=== PATIENT | male | born 1955 | race Two or more races ===

== ENCOUNTER 2020-06-10 03:28 | Emergency (ER) | payer MEDICARE, MEDICAID ==
[~2020-06-10] VITALS: Ht 182.9 cm; Wt 86.2 kg
[2020-06-10 04:08] LABS: Urine Bacteria FEW /hpf (None Seen); Urine Blood Negative /uL (Negative); Urine Mucus FEW (None Seen); Urine Specific Gravity 1.023 (1.001-1.035); Urine WBC 7 /hpf (0 - 3)
[2020-06-10 04:18] LABS: Basophils # (auto) 0 10 ^3/uL (0-0.2); Basophils % (auto) 0.3 % (0.0-2.0); Eosinophils # (auto) 0.3 10 ^3/uL (0-0.8); Eosinophils % (auto) 5.2 % (0.0-7.0); Hemoglobin 15.3 g/dL (13.5-17.5); Lymphocytes # (auto) 1.7 10 ^3/uL (0.4-5.4); Lymphocytes % (auto) 30.2 % (10.0-50.0); Mean Corpuscular Hemoglobin 29.9 pg (28.0-32.0); Mean Corpuscular Hgb Conc. 34.8 g/dL (32.0-36.0); Mean Corpuscular Volume 85.7 fL (80.0-100.0); Monocytes # (auto) 0.4 10 ^3/uL (0-1.3); Monocytes % (auto) 7.9 % (0.0-12.0); Neutrophils # (auto) 3.1 10 ^3/uL (1.6-8.6); Neutrophils % (auto) 56.4 % (37.0-80.0); Nucleated Red Blood Cells % 0.2 %; Platelet Count (auto) 168 10^3/uL (140-450); Red Blood Cells 5.13 10^6/uL (4.5-5.90); Red Cell Distribution Width 14.3 % (11.8-14.3); White Blood Cell 5.5 10^3/uL (4.4-10.8)
[2020-06-10 04:30] VITALS: BP 143/92
[2020-06-10 04:40] LABS: Albumin 3.9 g/dL (3.4-5.0); Calcium 8.4 mg/dL (8.5-10.1); Magnesium 2.5 mg/dL (1.6-2.6)
[2020-06-10 04:45] LABS: BUN/Creatinine Ratio 18.4; Bilirubin, Total 0.7 mg/dL (0.2-1.0); Total Protein 7.6 g/dL (6.4-8.2)
[2020-06-10] MEDS ORDERED: ACETAMINOPHEN/CODEINE#3 (300/30mg) TAB PO ONE (05:45)
== END 2020-06-10 06:15 | disposition home or self-care (01) ==
LOC: ER 03:29
DX: R33.9 Retention of urine, unspecified (principal)
CPT/HCPCS: 36415; 80053; 81001; 83735; 85025

== ENCOUNTER 2020-11-24 07:41 | Emergency (ER) | payer MEDICARE, MEDICAID ==
[~2020-11-24] VITALS: Ht 182.9 cm; Wt 83.9 kg
[2020-11-24 09:03] VITALS: BP 143/79
[2020-11-24 09:06] LABS: Basophils # (auto) 0 10 ^3/uL (0-0.2); Basophils % (auto) 0.1 % (0.0-2.0); Eosinophils # (auto) 0.2 10 ^3/uL (0-0.8); Eosinophils % (auto) 5.1 % (0.0-7.0); Hemoglobin 14.6 g/dL (13.5-17.5); Lymphocytes # (auto) 1.2 10 ^3/uL (0.4-5.4); Mean Corpuscular Hemoglobin 29.7 pg (28.0-32.0); Mean Corpuscular Hgb Conc. 34.8 g/dL (32.0-36.0); Mean Corpuscular Volume 85.3 fL (80.0-100.0); Monocytes # (auto) 0.4 10 ^3/uL (0-1.3); Monocytes % (auto) 8.8 % (0.0-12.0); Nucleated Red Blood Cells % 0.2 %; Red Blood Cells 4.93 10^6/uL (4.5-5.90); Red Cell Distribution Width 14.2 % (11.8-14.3); White Blood Cell 4.8 10^3/uL (4.4-10.8)
[2020-11-24 09:12] LABS: Urine Bacteria NONE SEEN /hpf (None Seen); Urine Blood Negative /uL (Negative); Urine Mucus FEW (None Seen); Urine Specific Gravity 1.014 (1.001-1.035); Urine WBC 3 /hpf (0 - 3)
[2020-11-24 09:23] LABS: Albumin 3.5 g/dL (3.4-5.0); BUN/Creatinine Ratio 18.1; Calcium 8.2 mg/dL (8.5-10.1); Potassium 3.1 mmol/L (3.5-5.1)
[2020-11-24 09:25] LABS: Bilirubin, Total 0.5 mg/dL (0.2-1.0); Total Protein 7.3 g/dL (6.4-8.2)
[2020-11-24] MEDS ORDERED: POTASSIUM EFFERVESENT TAB 25 MEQ PO ONE (10:30)
== END 2020-11-24 11:02 | disposition home or self-care (01) ==
LOC: ER 07:41
DX: R33.9 Retention of urine, unspecified (principal); E87.6 Hypokalemia; I10 Essential (primary) hypertension; E78.5 Hyperlipidemia, unspecified
CPT/HCPCS: 36415; 51702; 80053; 81001; 85025

== ENCOUNTER 2020-12-05 13:59 | Emergency (ER) | payer MEDICARE, MEDICAID ==
[~2020-12-05] VITALS: Ht 182.9 cm; Wt 83.9 kg
[2020-12-05 14:52] VITALS: BP 11/79
[2020-12-05 15:42] LABS: Urine Bacteria FEW /hpf (None Seen); Urine Blood 3+ /uL (Negative); Urine Specific Gravity 1.023 (1.001-1.035); Urine WBC 72 /hpf (0 - 3); Urine WBC Clumps PRESENT /hpf (None Seen)
== END 2020-12-05 16:05 | disposition home or self-care (01) ==
LOC: ER 13:59
DX: N39.0 Urinary tract infection, site not specified (principal); R33.9 Retention of urine, unspecified; I10 Essential (primary) hypertension
CPT/HCPCS: 51702; 81001

== ENCOUNTER 2020-12-06 21:52 | Emergency (ER) | payer MEDICARE, MEDICAID ==
[~2020-12-06] VITALS: Ht 182.9 cm; Wt 83.9 kg
[2020-12-06 22:38] LABS: Basophils # (auto) 0 10 ^3/uL (0-0.2); Basophils % (auto) 0.8 % (0.0-2.0); Eosinophils # (auto) 0.3 10 ^3/uL (0-0.8); Eosinophils % (auto) 5.6 % (0.0-7.0); Hematocrit 42.9 % (41.0-53.0); Hemoglobin 14.9 g/dL (13.5-17.5); Lymphocytes # (auto) 1.4 10 ^3/uL (0.4-5.4); Mean Corpuscular Hemoglobin 29.8 pg (28.0-32.0); Mean Corpuscular Hgb Conc. 34.6 g/dL (32.0-36.0); Mean Corpuscular Volume 85.9 fL (80.0-100.0); Monocytes # (auto) 0.4 10 ^3/uL (0-1.3); Monocytes % (auto) 6.4 % (0.0-12.0); Neutrophils # (auto) 3.4 10 ^3/uL (1.6-8.6); Neutrophils % (auto) 62.2 % (37.0-80.0); Red Cell Distribution Width 13.9 % (11.8-14.3); White Blood Cell 5.5 10^3/uL (4.4-10.8)
[2020-12-06 22:59] LABS: Albumin 3.9 g/dL (3.4-5.0); Potassium 3.3 mmol/L (3.5-5.1)
[2020-12-06 23:02] LABS: INR 0.99 (0.9-1.15)
[2020-12-06 23:04] LABS: BUN/Creatinine Ratio 17.8; Bilirubin, Total 0.3 mg/dL (0.2-1.0); Total Protein 7.9 g/dL (6.4-8.2)
[2020-12-06 23:12] LABS: Urine Blood 3+ /uL (Negative); Urine Specific Gravity 1.024 (1.001-1.035)
[2020-12-07 00:55] LABS: Urine Bacteria MOD /hpf (None Seen); Urine WBC 1412 /hpf (0 - 3); Urine WBC Clumps PRESENT /hpf (None Seen)
[2020-12-07] MEDS ORDERED: SODIUM CHLORIDE 0.9% 1,000 ML IV ONE (02:00)
[2020-12-07 03:00] VITALS: BP 150/89
== END 2020-12-07 04:17 | disposition home or self-care (01) ==
LOC: ER 21:53
DX: R33.9 Retention of urine, unspecified (principal)
CPT/HCPCS: 36415; 80053; 81001; 85025; 85610; 96360; 99283; J7030

== ENCOUNTER 2021-09-06 17:37 | Emergency (ER) | payer MEDICARE, MEDICAID ==
[~2021-09-06] VITALS: Ht 182.9 cm; Wt 83.9 kg
[2021-09-06 18:18] VITALS: BP 162/94
[2021-09-06 18:32] LABS: Urine Bacteria NONE SEEN /hpf (None Seen); Urine Blood Negative /uL (Negative); Urine Specific Gravity 1.011 (1.001-1.035); Urine WBC 2 /hpf (0 - 3)
== END 2021-09-06 19:43 | disposition home or self-care (01) ==
LOC: ER 17:37
DX: R33.9 Retention of urine, unspecified (principal); I10 Essential (primary) hypertension
CPT/HCPCS: 51702; 81001; 87086

== ENCOUNTER 2023-02-12 12:49 | Emergency (ER) | payer OTHER, MEDICAID ==
[~2023-02-12] VITALS: Ht 182.9 cm; Wt 86.9 kg
[2023-02-12 15:55] LABS: Urine Bacteria NONE SEEN /hpf (None Seen); Urine Blood Negative /uL (Negative); Urine WBC 1 /hpf (0 - 3)
[2023-02-12 16:04] VITALS: BP 174/103
[2023-02-12] MEDS ORDERED: cloNIDine HCL 0.1 MG TAB PO ONE (16:15)
== END 2023-02-12 17:40 | disposition home or self-care (01) ==
LOC: ER 12:49
DX: R33.9 Retention of urine, unspecified (principal); I10 Essential (primary) hypertension
CPT/HCPCS: 51702; 81001

== ENCOUNTER 2023-04-13 22:48 | Emergency (ER) | payer OTHER, MEDICAID ==
[~2023-04-13] VITALS: Ht 182.9 cm; Wt 84.6 kg
[2023-04-14 01:15] VITALS: BP 153/97; PULSE 80; RESP 16; TEMP 98.2; O2SAT 96
[2023-04-14] MEDS ORDERED: DexAMETHasone SOD PHOS 10MG/1ML VIAL INJ IM ONE (04:45)
[2023-04-14] MEDS ORDERED: HYDROcodone-ACET 5/325MG TAB PO ONE (04:45)
[2023-04-14] MEDS ORDERED: COLC1CAP PO (05:06)
== END 2023-04-14 06:07 | disposition home or self-care (01) ==
LOC: ER 22:48
DX: S93.492A Sprain of other ligament of left ankle, initial encounter (principal); S93.692A Other sprain of left foot, initial encounter; S83.8X2A Sprain of other specified parts of left knee, initial encounter; M10.9 Gout, unspecified; I10 Essential (primary) hypertension; X50.1XXA Overexertion from prolonged static or awkward postures, initial encounter; Y93.01 Activity, walking, marching and hiking; Y92.488 Other paved roadways as the place of occurrence of the external cause; Y99.8 Other external cause status
CPT/HCPCS: 29515; 36415; 73590; 73630; 84550; 96372; 99284; J1100

== ENCOUNTER 2024-01-19 05:45 | Inpatient (IN) | payer OTHER, MEDICAID ==
[~2024-01-19] VITALS: Ht 182.9 cm; Wt 84.0 kg
[~2024-01-19 05:45] MED LIST: COLC1CAP PO
[2024-01-19 07:21] VITALS: PULSE 111; RESP 15; O2SAT 95
[2024-01-19] MEDS: ACETAMINOPHEN 500 MG TAB PO ONE (07:54)
[2024-01-19] MEDS: IBUPROFEN 600 MG TAB PO ONE (07:55)
[2024-01-19 09:05] LABS: COVID19 ANTIGEN SOFIA FIA NEGATIVE (NEGATIVE); Rapid Influenza A Negative (Negative); Rapid Influenza B Negative (Negative)
[2024-01-19 09:47] LABS: Basophils # (auto) 0 10 ^3/uL (0-0.2); Basophils % (auto) 0.3 % (0.0-2.0); Eosinophils # (auto) 0 10 ^3/uL (0-0.8); Eosinophils % (auto) 0.4 % (0.0-7.0); Hematocrit 46.6 % (41.0-53.0); Hemoglobin 15.4 g/dL (13.5-17.5); Lymphocytes # (auto) 0.8 10 ^3/uL (0.4-5.4); Lymphocytes % (auto) 11.2 % (10.0-50.0); Mean Corpuscular Hemoglobin 29.1 pg (28.0-32.0); Mean Corpuscular Volume 88.3 fL (80.0-100.0); Monocytes # (auto) 0.7 10 ^3/uL (0-1.3); Monocytes % (auto) 9.5 % (0.0-12.0); Neutrophils # (auto) 5.6 10 ^3/uL (1.6-8.6); Neutrophils % (auto) 78.6 % (37.0-80.0); Nucleated Red Blood Cells % 0.2 %; Red Blood Cells 5.28 10^6/uL (4.5-5.90); Red Cell Distribution Width 15.8 % (11.8-14.3); White Blood Cell 7.1 10^3/uL (4.4-10.8)
[2024-01-19 09:50] VITALS: PULSE 65; RESP 14; O2SAT 95
[2024-01-19] MEDS: SODIUM CHLORIDE 0.9% 500 ML IV ONE (09:50)
[2024-01-19 10:00] LABS: INR 1.1 (0.9-1.15); Prothrombin Time 11.6 sec (9.3-11.8)
[2024-01-19 10:02] LABS: Alanine Aminotransferase 62 U/L (7-40); Albumin 4.1 g/dL (3.2-4.8); Alkaline Phosphatase 74 U/L (46-116); Anion Gap 8 (5-15); Aspartate Aminotransferase 37 U/L (13-40); BUN/Creatinine Ratio 16.1 (10.0-20.0); Bilirubin, Total 0.9 mg/dL (0.2-1.0); Blood Urea Nitrogen 22 mg/dL (9-23); Calcium 8.9 mg/dL (8.5-10.1); Carbon Dioxide 24 mmol/L (20-30); Chloride 104 mmol/L (98-107); Glucose 109 mg/dL (74-106); Potassium 3.2 mmol/L (3.5-5.1); Sodium 136 mmol/L (136-145); Total Protein 7.2 g/dL (5.7-8.2)
[2024-01-19] MEDS: SODIUM CHLORIDE 0.9% 1,000 ML IV ONE ×2 (10:33→11:49)
[2024-01-19] MEDS: cefTRIAXone 1GM/50ML D5W 50 ML IV ONE (11:48)
[2024-01-19] MEDS: VANCOMYCIN 1GM/200ML 200 ML IV ONE (12:05)
[2024-01-19 12:11] LABS: Urine Bacteria None Seen /hpf (None Seen)
[2024-01-19 12:23] LABS: Urine Blood Negative /uL (Negative); Urine Clarity Turbid (Clear); Urine Color Yellow (Yellow); Urine Hyaline Cast MANY /lpf (0 - 2); Urine Mucus FEW (None Seen); Urine Protein, UAD 1+ (Negative); Urine Urobilinogen 2 mg/dL (Negative); Urine WBC 32 /hpf (0 - 3)
[2024-01-19] MEDS: AZITHROMYCIN 500MG/ 250ML 250 ML IV ONE (14:11)
[2024-01-19] MEDS: SODIUM CHLORIDE 0.9% 1,000 ML IV SCH (14:11)
[2024-01-20] VITALS (8 sets, daily range): BP systolic 99–134; BP diastolic 58–76; PULSE 68–88; RESP 17–20; TEMP 97.9–99.7; O2SAT 94–98
[2024-01-20 02:49] LABS: Rapid Strep A Screen-Throat Positive
[2024-01-20 06:30] LABS: Basophils # (auto) 0 10 ^3/uL (0-0.2); Basophils % (auto) 0.3 % (0.0-2.0); Eosinophils # (auto) 0 10 ^3/uL (0-0.8); Eosinophils % (auto) 0.5 % (0.0-7.0); Hematocrit 38.7 % (41.0-53.0); Hemoglobin 13.2 g/dL (13.5-17.5); Lymphocytes # (auto) 1.1 10 ^3/uL (0.4-5.4); Lymphocytes % (auto) 21.6 % (10.0-50.0); Mean Corpuscular Hemoglobin 29.4 pg (28.0-32.0); Mean Corpuscular Hgb Conc. 34.1 g/dL (32.0-36.0); Mean Corpuscular Volume 86.2 fL (80.0-100.0); Monocytes # (auto) 0.5 10 ^3/uL (0-1.3); Monocytes % (auto) 10.1 % (0.0-12.0); Neutrophils # (auto) 3.5 10 ^3/uL (1.6-8.6); Neutrophils % (auto) 67.5 % (37.0-80.0); Nucleated Red Blood Cells % 0.1 %; Red Blood Cells 4.49 10^6/uL (4.5-5.90); Red Cell Distribution Width 15.5 % (11.8-14.3); White Blood Cell 5.1 10^3/uL (4.4-10.8)
[2024-01-20 06:47] LABS: Chloride 107 mmol/L (98-107); Potassium 3.5 mmol/L (3.5-5.1); Sodium 137 mmol/L (136-145)
[2024-01-20 06:48] LABS: Anion Gap 7 (5-15); Carbon Dioxide 23 mmol/L (20-30)
[2024-01-20 06:49] LABS: Calcium 8.3 mg/dL (8.5-10.1)
[2024-01-20 06:53] LABS: Blood Urea Nitrogen 15 mg/dL (9-23); Glucose 93 mg/dL (74-106)
[2024-01-20] MEDS ORDERED: FINA5TAB4 PO (08:24)
[2024-01-20] MEDS ORDERED: HYDR25TA5 PO (08:24)
[2024-01-20] MEDS ORDERED: CHOL20007 PO (08:25)
[2024-01-20 09:55] LABS: Hepatitis B Surface Antigen Negative (Negative)
[2024-01-20] MEDS: ENOXAPARIN SOD 40 MG/0.4 ML SYRINGE SC SCH (10:00)
[2024-01-20] MEDS ORDERED: AZITHROMYCIN 500MG/ 250ML 250 ML IV SCH (10:00)
[2024-01-20 10:17] LABS: Hepatitis C Antibody Negative (Negative)
[2024-01-20] MEDS: cefTRIAXone 1GM/50ML D5W 50 ML IV SCH (10:35)
[2024-01-20] MEDS: PANTOPRAZOLE 40 MG/10 ML VIAL INJ IV ONE (11:30)
[2024-01-20] MEDS: metroNIDAZOLE 500MG/100ML 100 ML IV SCH (14:00)
[2024-01-20] MEDS: MELATONIN 5 MG TAB PO SCH (21:20)
[2024-01-21] VITALS (8 sets, daily range): BP systolic 111–153; BP diastolic 68–82; PULSE 56–81; RESP 16–18; TEMP 98–98.9; O2SAT 95–97
[2024-01-21] MEDS: ACETAMINOPHEN 325 MG TAB PO PRN (06:25)
[2024-01-21] MEDS: PANTOPRAZOLE 40 MG/10 ML VIAL INJ IV SCH (10:34)
[2024-01-22 01:00] VITALS: BP 121/67; PULSE 63; RESP 17; TEMP 98.3; O2SAT 95
[2024-01-22 05:00] VITALS: BP 131/66; PULSE 62; RESP 17; TEMP 98.8; O2SAT 96
[2024-01-22 07:13] LABS: Basophils # (auto) 0 10 ^3/uL (0-0.2); Basophils % (auto) 0.3 % (0.0-2.0); Eosinophils # (auto) 0.1 10 ^3/uL (0-0.8); Eosinophils % (auto) 2.8 % (0.0-7.0); Hematocrit 36.8 % (41.0-53.0); Hemoglobin 12.9 g/dL (13.5-17.5); Lymphocytes # (auto) 1.1 10 ^3/uL (0.4-5.4); Lymphocytes % (auto) 25.5 % (10.0-50.0); Mean Corpuscular Hgb Conc. 35.1 g/dL (32.0-36.0); Mean Corpuscular Volume 85.5 fL (80.0-100.0); Monocytes # (auto) 0.5 10 ^3/uL (0-1.3); Monocytes % (auto) 10.6 % (0.0-12.0); Neutrophils # (auto) 2.7 10 ^3/uL (1.6-8.6); Neutrophils % (auto) 60.8 % (37.0-80.0); Nucleated Red Blood Cells % 0.1 %; Red Cell Distribution Width 14.9 % (11.8-14.3); White Blood Cell 4.4 10^3/uL (4.4-10.8)
[2024-01-22 07:34] LABS: Chloride 107 mmol/L (98-107); Potassium 3.3 mmol/L (3.5-5.1); Sodium 138 mmol/L (136-145)
[2024-01-22 07:35] LABS: Anion Gap 6 (5-15); Calcium 8.4 mg/dL (8.5-10.1); Carbon Dioxide 25 mmol/L (20-30)
[2024-01-22 07:40] LABS: Glucose 91 mg/dL (74-106)
[2024-01-22 07:41] LABS: BUN/Creatinine Ratio 8.6 (10.0-20.0); Blood Urea Nitrogen 7 mg/dL (9-23)
[2024-01-22 09:00] VITALS: BP 140/78; PULSE 62; RESP 18; TEMP 97.3; O2SAT 96
[2024-01-22] MEDS ORDERED: PANT40TA2 PO (11:35)
[2024-01-22] MEDS: POTASSIUM CHL 20 Meq TABLET PO ONE (13:20)
== END 2024-01-22 17:16 | disposition home or self-care (01) | DRG 871 ==
LOC: ER 05:45 → TELE 13:35 → TELE-WESTW 01-20 08:03 → WEST WING 01-20 16:39
PROVIDERS: ADMIT Registered Nurse; ATTEND Internal Medicine
DX: A41.9 Sepsis, unspecified organism (principal); N17.0 Acute kidney failure with tubular necrosis; K52.9 Noninfective gastroenteritis and colitis, unspecified; E86.0 Dehydration; M10.9 Gout, unspecified; I10 Essential (primary) hypertension; M19.09 Primary osteoarthritis, other specified site; I95.9 Hypotension, unspecified; N40.0 Benign prostatic hyperplasia without lower urinary tract symptoms; Z20.822 Contact with and (suspected) exposure to COVID-19; E87.5 Hyperkalemia; Z79.899 Other long term (current) drug therapy
CPT/HCPCS: 36415; 71046; 74176; 80048; 80053; 81001; 83605; 83690; 83735; 83880; 84484; 85025; 85048; 85379; 85610; 86803; 87040; 87045; 87086; 87340; 87426; 87427; 87493; 87804; 87880; C9113; G0378; J3490

== ENCOUNTER 2024-12-14 09:08 | Inpatient (IN) | payer OTHER, MEDICAID ==
[~2024-12-14] VITALS: Ht 190.5 cm; Wt 83.0 kg
[~2024-12-14 09:08] MED LIST changes: +CHOL20007 PO; -COLC1CAP PO; +FINA5TAB4 PO; +HYDR25TA5 PO; +PANT40TA2 PO
--- NOTE | 2024-12-14 09:39 | ED.PDOC ---
General HPI Comments 69 year old male presents to the ED with a chief complaint of urine retention onset last night. Patient states has not urinated since las night. Has experienced similar symptoms 3 times in the past, goes to ED for Heaton catheter. Patient was drinking ETOH last night. PMHx HTN. Denies chest pain, nausea, vomiting, diarrhea, abdominal pain, hematuria, shortness of breath, fever, chills. No other symptoms or modifying factors present at this time. Chief Complaint: Urinary Time Seen by MD: 09:17 Primary Care Provider: unknown Reviewed notes: Medications, Allergies Allergies: Coded Allergies: NO KNOWN ALLERGIES (Unverified , 06/10/20) Home Meds Active Scripts Pantoprazole Sodium Sesquihydr (Protonix) 40 Mg Tab, 40 MG PO DAILY for 15 Days, #15 TAB Prov:ROSHNI VELASCO MD 01/22/24 Reported Medications Cholecalciferol (VITAMIN D3) 2,000 Unit Tab, 1 TAB PO DAILY, #30 TAB 5 Refills 01/20/24 Finasteride (Finasteride) 5 Mg Tab, 1 TAB PO DAILY, #30 TAB 11 Refills 01/20/24 Hctz (Hydrochlorothiazide) 25 Mg Tab, 1 TAB PO DAILY 01/20/24 Information Source: Patient Mode of Arrival: Ambulatory Severity: Moderate Timing: Hours Duration: Since onset Prehospital treatment: None Onset: Spontaneous Symptoms: Other (retention) History of: Urinary obstruction, Prostatitis Location: None Penile discharge: None Modifying factors: None associated signs and symptoms: Other Past Medical History PAST MEDICAL HISTORY: HTN Past Medical History (Other): prostate Surgical History: Denies all surgeries Family History Family History: Reviewed,noncontributory to illness Social History Smoker: Non-Smoker Alcohol: Occasionally Drugs: Denies Drug Use Lives In: Home Constitutional: denies: chills, diaphoresis, fatigue, fever, malaise, sweats, weakness, others EENTM: denies: blurred vision, double vision, ear bleeding, ear discharge, ear drainage, ear pain, ear ringing, eye pain, eye redness, hearing loss, mouth p ain, mouth swelling, nasal discharge, nose bleeding, nose congestion, nose pain, photophobia, tearing, throat pain, throat swelling, voice changes, others Respiratory: denies: cough, hemoptysis, orthopnea, SOB at rest, shortness of br eath, SOB with excertion, stridor, wheezing, others Cardiovascular: denies: chest pain, dizzy spells, diaphoresis, Dyspnea on exertion, edema, irregular heart beat, left arm pain, lightheadedness, palpitations, PND, syncope, others Gastrointestinal: denies: abdomen distended, abdominal pain, blood streaked bowels, constipated, diarrhea, dysphagia, difficulty swallowing, hematemesis, melena, nausea, poor appetite, poor fluid intake, rectal bleeding, rectal pain, vomiting, others Genitourinary: reports: others (retention); denies: burning, dysuria, flank pain, frequency, hematuria, incontinence, penile discharge, penile sore, pain, testicle pain, testicle swelling, urgency Neurological: denies: dizziness, fainting, headache, left sided numbness, left sided weakness, numbness, paresthesia, pre-existing deficit, right sided numbness, right sided weakness, seizure, speech problems, tingling, tremors, weakness, others Musculoskeletal: denies: back pain, gout, joint pain, joint swelling, muscle pain, muscle stiffness, neck pain, others Integumetry: denies: bruises, change in color, change in hair/nails, dryness, laceration, lesions, lumps, rash, wounds, others Allergic/Immunocompromised: denies: Difficulty Healing, Frequent Infections, Hives, Itching, others Hematologic/Lymphatic: denies: anemia, blood clots, easy bleeding, easy bruising, swollen glands, others Endocrine: denies: excessive hunger, excessive sweating, excessive thirst, excessive urination, flushing, intolerance to cold, intolerance to heat, unexplained weight gain, unexplained weight loss, others Psychiatric: denies: anxiety, bipolar disorder, depression, hopeless, panic disorder, schizophrenia, sleepless, suicidal, others All Other Systems: Reviewed and Negative Physical Exam General Appearance: Moderate Distress, Normal HEENT: Normal ENT Inspection, Pharynx Normal, TMs Normal Neck: Full Range of Motion, Non-Tender, Normal, Normal Inspection Respiratory: Chest Non-Tender, Lungs Clear, No Accessory Muscle Use, No Respiratory Distress, Normal Breath Sounds Cardiovascular: No Edema, No JVD, No Murmur, No Gallop, Normal Peripheral Pulses, Regular Rate/Rhythm Breast Exam: Deferred Gastrointestinal: No Organomegaly, No Pulsatile Mass, Normal Bowel Sounds, Soft, Suprapubic Genitalia: Deferred Pelvic: Deferred Rectal: Deferred Extremities: No calf tenderness, Normal capillary refill, Normal inspection, Normal range of motion, Non-tender, No pedal edema Musculoskeletal : Apperance: Normal 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 Was a procedure done?: No Differential Diagnosis Kidney stone (Female): Musculoskeletal pain, Urinary obstruction, Urolithiasis X-Ray, Labs, Meds, VS Vital Signs Date Time Temp Pulse Resp B/P (MAP) Pulse Ox O2 Delivery O2 Flow Rate FiO2 12/14/24 12:00 71 12/14/24 10:12 64 12/14/24 10:12 66 25 95 Room Air* 0 21 12/14/24 10:12 98.4 66 25 147/78 (101) 94 98.4 12/14/24 10:09 147/78 12/14/24 09:26 97.7 84 16 129/90 (103) 96 97.7 Lab Test 12/14/24 09:45 12/14/24 09:34 Range/Units Urine Color Colorless Yellow Urine Clarity Clear Clear Urine pH 5.0 5.0-9.0 Urine Specific [place] 1.007 1.001-1.035 Urine Protein Negative Negative Urine Ketones Negative Negative Urine Blood Negative Negative /uL Urine Nitrite Negative Negative Urine Bilirubin Negative Negative Urine Urobilinogen Normal Negative mg/dL Urine Leukocyte Esterase Negative Negative /uL Urine RBC 1 0 - 3 /hpf Urine Microscopic WBC < 1 0-3 /HPF Urine Squamous Epithelial Cells None seen <5 /hpf Urine Bacteria None seen None Seen /hpf Urine Glucose Normal Normal mg/dL White Blood Count 7.0 4.4-10.8 10^3/uL Red Blood Count 4.99 4.5-5.90 10^6/uL Hemoglobin 15.6 13.5-17.5 g/dL Hematocrit 45.0 41.0-53.0 % Mean Corpuscular Volume 90.3 80.0-100.0 fL Mean Corpuscular Hemoglobin 31.2 28.0-32.0 pg Mean Corpuscular Hemoglobin Concent 34.6 32.0-36.0 g/dL Red Cell Distribution Width 14.6 H 11.8-14.3 % Platelet Count 195 140-450 10^3/uL Mean Platelet Volume 8.6 6.9-10.8 fL Neutrophils (%) (Auto) 58.7 37.0-80.0 % Lymphocytes (%) (Auto) 32.9 10.0-50.0 % Monocytes (%) (Auto) 6.7 0.0-12.0 % Eosinophils (%) (Auto) 1.3 0.0-7.0 % Basophils (%) (Auto) 0.4 0.0-2.0 % Neutrophils # (Auto) 4.1 1.6-8.6 10 ^3/uL Lymphocytes # (Auto) 2.3 0.4-5.4 10 ^3/uL Monocytes # (Auto) 0.5 0-1.3 10 ^3/uL Eosinophils # (Auto) 0.1 0-0.8 10 ^3/uL Basophils # (Auto) 0 0-0.2 10 ^3/uL Nucleated Red Blood Cells 0.2 % Sodium Level 143 136-145 mmol/L Potassium Level 3.8 3.5-5.1 mmol/L Chloride Level 108 H 98-107 mmol/L Carbon Dioxide Level 27 20-31 mmol/L Anion Gap 8 5-15 Blood Urea Nitrogen 14 9-23 mg/dL Creatinine 1.03 0.700-1.30 mg/dL Glomerular Filtration Rate Calc 78 >90 mL/min BUN/Creatinine Ratio 13.6 10.0-20.0 Serum Glucose 101 74-106 mg/dL Calcium Level 9.7 8.7-10.4 mg/dL Troponin I High Sensitivity 6 </=54 ng/L Patient alert. Complaining of urinary retention. Suprapubic discomfort. Vitals stable. Possible prostate. Urology consultation. Cardiac marker within normal limits. Continues to be in discomfort. Blood pressure slightly elevated. EKG reviewed does not show any acute changes. Reviewed his history. Explained to the patient. Continue monitoring. Time of 1ST Reevaluation: 09:47 Reevaluation 1ST: Unchanged Patient Education/Counseling: Diagnosis, Treatment, Prognosis Family Education/Counseling: No Family Present Departure 1 Departure Time of Disposition: 12:34 Impression: Primary Impression: Suprapubic discomfort Additional Impressions: Prostate hypertrophy Acute urinary retention HTN (hypertension) Qualified Codes: I10 - Essential (primary) hypertension Disposition: ADMITTED INPATIENT Admit to: Med Surg Condition: Guarded Critical Care Note Critical Care Time?: No Stability Stability form required: No Heart Score Heart Score: Heart Score Response (Comments) Value History Slightly Suspicious 0 EKG Normal 0 Age >65 2 Risk Factors 1 or 2 risk factors 1 Troponin Normal limit 0 Total 3 I personally scribed for ISABEL RUBALCAVA MD ([email or web address]) on 12/14/24 at 09:39. Electronically submitted by Nataly Caldera ([email or web address]). ISABEL RUBALCAAV MD Dec 14, 2024 09:39
[2024-12-14 09:57] LABS: Basophils # (auto) 0 10 ^3/uL (0-0.2); Basophils % (auto) 0.4 % (0.0-2.0); Eosinophils # (auto) 0.1 10 ^3/uL (0-0.8); Eosinophils % (auto) 1.3 % (0.0-7.0); Hemoglobin 15.6 g/dL (13.5-17.5); Lymphocytes # (auto) 2.3 10 ^3/uL (0.4-5.4); Lymphocytes % (auto) 32.9 % (10.0-50.0); Mean Corpuscular Hemoglobin 31.2 pg (28.0-32.0); Mean Corpuscular Hgb Conc. 34.6 g/dL (32.0-36.0); Mean Corpuscular Volume 90.3 fL (80.0-100.0); Monocytes # (auto) 0.5 10 ^3/uL (0-1.3); Monocytes % (auto) 6.7 % (0.0-12.0); Neutrophils # (auto) 4.1 10 ^3/uL (1.6-8.6); Neutrophils % (auto) 58.7 % (37.0-80.0); Nucleated Red Blood Cells % 0.2 %; Platelet Count (auto) 195 10^3/uL (140-450); Red Blood Cells 4.99 10^6/uL (4.5-5.90); Red Cell Distribution Width 14.6 % (11.8-14.3)
[2024-12-14 10:00] LABS: Urine Bacteria None Seen /hpf (None Seen)
[2024-12-14] MEDS: cloNIDine HCL 0.1 MG TAB PO ONE ×2 (10:09→15:43)
[2024-12-14 10:12] VITALS: PULSE 66; RESP 25; O2SAT 95
[2024-12-14 10:16] LABS: Potassium 3.8 mmol/L (3.5-5.1); Sodium 143 mmol/L (136-145)
[2024-12-14 10:17] LABS: Anion Gap 8 (5-15); Calcium 9.7 mg/dL (8.7-10.4); Carbon Dioxide 27 mmol/L (20-31)
[2024-12-14 10:19] LABS: Chloride 108 mmol/L (98-107)
[2024-12-14 10:22] LABS: BUN/Creatinine Ratio 13.6 (10.0-20.0); Blood Urea Nitrogen 14 mg/dL (9-23); Glucose 101 mg/dL (74-106)
[2024-12-14 10:26] LABS: Urine Blood Negative /uL (Negative); Urine Clarity Clear (Clear); Urine Color Colorless (Yellow); Urine Protein, UAD Negative (Negative); Urine Specific Gravity 1.007 (1.001-1.035); Urine Squamous Epithelial Cell None Seen /hpf (<5); Urine Urobilinogen Normal (Negative); Urine WBC < 1 /HPF (0-3)
[2024-12-14] MEDS ORDERED: ACETAMINOPHEN 325 MG TAB PO PRN (15:15)
[2024-12-14] MEDS ORDERED: DOCUSATE SOD 100 MG CAP PO PRN (15:15)
[2024-12-14] MEDS ORDERED: VALS160T84 PO (15:17)
--- NOTE | 2024-12-14 15:37 | DVHHP2 ---
History of Present Illness Reason for Visit: Urinary retention History of Present Illness Tor Sanders is a 69-year-old male with past medical history of hypertension, hyperlipidemia, BPH, and arthritis, who came in for urinary retention. Patient states that he has had this problem in the past 2 other times, where he had to go to the hospital to have a catheter placed. He states it happens when he drinks alcohol. Patient states he drinks rarely, but he had a few beer last night and he last urinated at 2000 yesterday prior to coming in. On assessment there is about 1500 ml of clear, yellow urine in the catheter bag since it was inserted around 1030 am. Cardiovascular: HTN, hyperipidemia Musculoskeletal: Osteoarthritis Renal/: Benign prostatic enlarg. Past Surgical History: Other (right ear) Smoke: No ALCOHOL: rare Drugs: None Lives: with Family Domestic Violence: Neg Review of Systems Constitutional: No: Fever, Chills, Sweats, Weakness, Malaise, Other Eyes: No: Pain, Vision change, Conjunctivae inflammation, Eyelid inflammation, Other, Redness ENT: No: Ear pain, Ear discharge, Nose pain, Nose discharge, Nose congestion, Mouth pain, Mouth swelling, Throat pain, Throat swelling, Other Respiratory: No: Cough, Dry, Shortness of breath, SOB with excertion, Wheezing, Hemoptysis, Pleuritic Pain, Sputum, Wheezing, Other Cardiovascular: No: Chest Pain, Palpitations, Orthopnea, Paroxysmal Noc. Dyspnea, Edema, Lt Headedness, Other Gastrointestinal: No: Nausea, Vomiting, Abdominal Pain, Diarrhea, Constipation, Melena, Hematochezia, Other Genitourinary: No Dysuria, No Frequency, No Incontinence, No Hematuria; Retention; No Other Musculoskeletal: No: other, neck pain, shoulder pain, arm pain, back pain, hand pain, leg pain, foot pain Skin: No: Rash, Lesions, Jaundice, Bruising, Other Neurological: No: Weakness, Numbness, Incoordination, Change in speech, Confusion, Seizures, Other Allergies: Coded Allergies: NO KNOWN ALLERGIES (Unverified , 06/10/20) Medications Current Medications Medications Dose Ordered Sig/Yvrose Route Start Time Stop Time Status Last Admin Dose Admin Sodium Chloride 10 ml Q8HR IV 12/14/24 22:00 UNV Acetaminophen/ Hydrocodone Bitart 1 tab Q4HP PRN PO 12/14/24 15:15 UNV Ondansetron HCl 4 mg Q4HP PRN IV 12/14/24 15:15 UNV Docusate Sodium 100 mg BIDPRN PRN PO 12/14/24 15:15 UNV Acetaminophen 650 mg Q6HP PRN PO 12/14/24 15:15 UNV Tamsulosin HCl 0.4 mg QPM PO 12/14/24 18:00 UNV Finasteride 5 mg DAILY PO 12/15/24 10:00 UNV Patient Own Medication 1 tab DAILY PO 12/15/24 10:00 UNV Exam Vital Signs Vital Signs Date Time Temp Pulse Resp B/P (MAP) Pulse Ox O2 Delivery O2 Flow Rate FiO2 12/14/24 12:46 66 22 163/83 (109) 93 12/14/24 10:12 Room Air* 0 21 12/14/24 10:12 98.4 98.4 General Appearance: Alert, Oriented X3, Cooperative, No acute distress HEENT: Atraumatic Respiratory: Clear to auscultation, Normal air movement Cardiovascular: Regular rate, Normal S1, Normal S2, No murmurs Abdominal: Normal bowel sounds, Soft, No tenderness, No hepatospenomegaly, Other (Heaton catheter in place) Extremities: No clubbing, No cyanosis, No edema, Normal pulses Skin: No rashes, No breakdown, No significant lesion Neuro: Normal gait, Normal speech, Strength at 5/5 X4 ext Psych/Mental Status: Mental status NL, Mood NL Labs/Xrays Labs Test 12/14/24 09:45 12/14/24 09:34 Range/Units Urine Color Colorless Yellow Urine Clarity Clear Clear Urine pH 5.0 5.0-9.0 Urine Specific [place] 1.007 1.001-1.035 Urine Protein Negative Negative Urine Ketones Negative Negative Urine Blood Negative Negative /uL Urine Nitrite Negative Negative Urine Bilirubin Negative Negative Urine Urobilinogen Normal Negative mg/dL Urine Leukocyte Esterase Negative Negative /uL Urine RBC 1 0 - 3 /hpf Urine Microscopic WBC < 1 0-3 /HPF Urine Squamous Epithelial Cells None seen <5 /hpf Urine Bacteria None seen None Seen /hpf Urine Glucose Normal Normal mg/dL White Blood Count 7.0 4.4-10.8 10^3/uL Red Blood Count 4.99 4.5-5.90 10^6/uL Hemoglobin 15.6 13.5-17.5 g/dL Hematocrit 45.0 41.0-53.0 % Mean Corpuscular Volume 90.3 80.0-100.0 fL Mean Corpuscular Hemoglobin 31.2 28.0-32.0 pg Mean Corpuscular Hemoglobin Concent 34.6 32.0-36.0 g/dL Red Cell Distribution Width 14.6 H 11.8-14.3 % Platelet Count 195 140-450 10^3/uL Mean Platelet Volume 8.6 6.9-10.8 fL Neutrophils (%) (Auto) 58.7 37.0-80.0 % Lymphocytes (%) (Auto) 32.9 10.0-50.0 % Monocytes (%) (Auto) 6.7 0.0-12.0 % Eosinophils (%) (Auto) 1.3 0.0-7.0 % Basophils (%) (Auto) 0.4 0.0-2.0 % Neutrophils # (Auto) 4.1 1.6-8.6 10 ^3/uL Lymphocytes # (Auto) 2.3 0.4-5.4 10 ^3/uL Monocytes # (Auto) 0.5 0-1.3 10 ^3/uL Eosinophils # (Auto) 0.1 0-0.8 10 ^3/uL Basophils # (Auto) 0 0-0.2 10 ^3/uL Nucleated Red Blood Cells 0.2 % Sodium Level 143 136-145 mmol/L Potassium Level 3.8 3.5-5.1 mmol/L Chloride Level 108 H 98-107 mmol/L Carbon Dioxide Level 27 20-31 mmol/L Anion Gap 8 5-15 Blood Urea Nitrogen 14 9-23 mg/dL Creatinine 1.03 0.700-1.30 mg/dL Glomerular Filtration Rate Calc 78 >90 mL/min BUN/Creatinine Ratio 13.6 10.0-20.0 Serum Glucose 101 74-106 mg/dL Calcium Level 9.7 8.7-10.4 mg/dL Troponin I High Sensitivity 6 </=54 ng/L Assessment/Plan Assessment/Plan Assessment: Acute urinary retention, Hypertension, Hyperlipidemia, Arthritis, Plan: Admit to Med-Surg, Urology consult, Heaton catheter placed by ER, Flomax started, Home medications reconciled, Plan discussed with: Patient My Orders Orders - PATITO JIANG Procedure Category Date Status Time Admit ADMIT 12/14/24 Transmitted 15:15 Code Status CODE 12/14/24 Transmitted 15:15 Sodium Chloride Lock PHA 12/14/24 Logged (Saline Lock Ns) 22:00 Hydrocodone-Acet PHA 12/14/24 Logged 5/325mg Tab ([place] 15:15 Ondansetron Hcl PHA 12/14/24 Transmitted (Zofran) 15:15 Docusate Sodium PHA 12/14/24 Transmitted Capsule (Colace 15:15 Complete Blood Count LAB 12/15/24 Verified 04:00 Comprehensive LAB 12/15/24 Verified Metabolic Panel 04:00 Condition: Serious FRACISCO 12/14/24 Transmitted 15:15 Acetaminophen Tablet PHA 12/14/24 Transmitted (Tylenol Tablet) 15:15 * Urology Consult CONS 12/14/24 Transmitted 15:15 Tamsulosin PHA 12/14/24 Logged Hydrochloride (Flomax) 18:00 Finasteride Tablet PHA 12/15/24 Logged (Proscar Tablet) 10:00 (NF) PHA 12/15/24 Logged Valsartan-Hydrochlorothiazide 10:00 Clonidine Hcl Tablet PHA 12/14/24 Logged (Catapres Tablet) 15:30 Date of Service: Dec 14, 2024 Billing Provider: PATITO JIANG Common Visit Codes: [id number] INP/OBS CARE (MOD) PATITO JIANG Dec 14, 2024 15:37
[2024-12-14] MEDS: HYDROcodone-ACET 5/325MG TAB PO PRN (15:42)
[2024-12-14] MEDS: ONDANSETRON HCL 4 MG/2 ML VIAL IV PRN (15:45)
[2024-12-14 16:26] VITALS: BP 150/86; PULSE 79; TEMP 98.4; O2SAT 96
[2024-12-14 17:00] VITALS: BP 106/66; PULSE 59; RESP 16; TEMP 98.2; O2SAT 92
[2024-12-14 17:25] VITALS: PULSE 76; RESP 16; O2SAT 96
[2024-12-14] MEDS: TAMSULOSIN HYDROCHLORIDE 0.4 MG CAP PO SCH (17:48)
[2024-12-14 21:00] VITALS: BP 95/62; PULSE 75; RESP 18; TEMP 98.3; O2SAT 93
[2024-12-14] MEDS: SODIUM CHLOR 0.9% PF (SALINE LOCK) 10ML VIAL/SYR IV SCH (21:43)
[2024-12-15] VITALS (7 sets, daily range): BP systolic 106–133; BP diastolic 63–76; PULSE 64–80; RESP 17–19; TEMP 97.5–98.8; O2SAT 92–99
[2024-12-15 06:57] LABS: Basophils # (auto) 0 10 ^3/uL (0-0.2); Basophils % (auto) 0.2 % (0.0-2.0); Eosinophils # (auto) 0.1 10 ^3/uL (0-0.8); Eosinophils % (auto) 2.3 % (0.0-7.0); Hematocrit 39.4 % (41.0-53.0); Hemoglobin 13.6 g/dL (13.5-17.5); Lymphocytes # (auto) 1.3 10 ^3/uL (0.4-5.4); Lymphocytes % (auto) 23.4 % (10.0-50.0); Mean Corpuscular Hgb Conc. 34.4 g/dL (32.0-36.0); Mean Corpuscular Volume 90.1 fL (80.0-100.0); Monocytes # (auto) 0.5 10 ^3/uL (0-1.3); Monocytes % (auto) 8.6 % (0.0-12.0); Neutrophils # (auto) 3.8 10 ^3/uL (1.6-8.6); Neutrophils % (auto) 65.5 % (37.0-80.0); Nucleated Red Blood Cells % 0.2 %; Platelet Count (auto) 153 10^3/uL (140-450); Red Blood Cells 4.37 10^6/uL (4.5-5.90); Red Cell Distribution Width 14.3 % (11.8-14.3); White Blood Cell 5.7 10^3/uL (4.4-10.8)
[2024-12-15 07:12] LABS: Alanine Aminotransferase 31 U/L (7-40); Albumin 3.9 g/dL (3.2-4.8); Alkaline Phosphatase 58 U/L (46-116); Anion Gap 7 (5-15); Aspartate Aminotransferase 16 U/L (13-40); Blood Urea Nitrogen 22 mg/dL (9-23); Calcium 9.1 mg/dL (8.7-10.4); Carbon Dioxide 27 mmol/L (20-31); Chloride 106 mmol/L (98-107); Glucose 87 mg/dL (74-106); Potassium 3.9 mmol/L (3.5-5.1); Sodium 140 mmol/L (136-145); Total Protein 6.4 g/dL (5.7-8.2)
[2024-12-15 07:24] LABS: Bilirubin, Total 1.3 mg/dL (0.2-1.0)
[2024-12-15] MEDS: VALSARTAN PO SCH (10:00)
[2024-12-15] MEDS: HYDROCHLOROTHIAZIDE PO SCH (10:00)
[2024-12-15] MEDS ORDERED: FINASTERIDE 5 MG TAB PO SCH (10:00)
--- NOTE | 2024-12-15 10:00 | DVH ---
Procedure: CT CT AB PEL WO CON-NO ORAL OR IV 12/15/2024 09:03 AM Indication: suprapubic pain Comparison Study: CT CT AB PEL WO CON-NO ORAL OR IV on DOS: 01/20/24 Technique: Axial images were obtained and reformatted in coronal and sagittal planes. All CT scans at this medical facility are performed using dose modulation techniques as appropriate to a performed e xam including the following: Automated exposure control was utilized; adjustment of the MA and/or KV according to patient size; and use of iterative reconstruction technique. CT Dose: CTDI volume is 9.9 8 mGy. Dose-length product is 658.78 mGy*cm FINDINGS: Lower Chest: Bibasilar subsegmental atelectasis is noted. The heart is normal in size. Coronary marco ry calcification noted. Hepatobiliary: Unremarkable. Spleen: Unremarkable. Pancreas: Unremarkable. Adrenal Glands: Unremarkable. tract: The kidneys are normal in size bilaterally without hydronephrosis . Few subcentimeter nono bstructing left renal calculi measuring up to 3 mm. Bladder is decompressed with a Heaton catheter . Diffuse bladder wall thickening pericystic fat stranding noted. Trace fluid is seen in the bladder elisbaeth men likely related to recent instrumentation. GI tract: The stomach is grossly normal in appearance. No evidence of small bowel obstruction. There is sigmoid diverticulosis without diverticulitis. The appendix is not visualized. No inflammatory wendy nge is noted in the right lower quadrant. Lymphatics: No mesenteric, retroperitoneal or periportal lymphadenopathy. Vasculature: The abdominal aorta is normal in in caliber with Scattered calcified plaques noted. Pelvic Organs: Mild prostatic hyperplasia measuring 4.8 cm in transverse Bones/soft tissues: No acute abnormality. Other: None. IMPRESSION: 1. Cystitis. Bladder wall is thickened pericystic inflammation noted. No hydroureter or hydronephros is. 2. Several subcentimeter nonobstructing left renal calculi measuring up to 3 mm. 3. Moderate prostatic hyperplasia. 4. Sigmoid diverticula without diverticulitis.
--- NOTE | 2024-12-15 15:13 | DVHPNRES ---
Progress Note Date Seen: Dec 15, 2024 Resident Creating Document: SHIREEN VILLAGRAN RESIDENT Medical Necessity Reason Pt with a Central, PICC or Fol: No Subjective Review of Systems This is a 69-year-old male who came in for urinary retention. PMH: HTN, hyperipidemia, Osteoarthritis, Benign prostatic enlarg. Past Surgical History: Other (right ear) SH: Smoke: No. ALCOHOL: rare. Drugs: None. Lives: with Family Patient states that he has had this problem in the past 2 other times, where he had to go to the hospital to have a catheter placed. He states it happens when he drinks alcohol. Patient states he drinks rarely, but he had a few beer last night and he last urinated at 2000 yesterday prior to coming in. On assessment there is about 1500 ml of clear, yellow urine in the catheter bag since it was inserted around 1030 am. On my initial assessment, patient was seen and examined at bedside. He currently states feeling well, denies any significant shortness of breath, chest pain, abdominal pain, dysuria, nausea, vomiting, diarrhea, constipation, dizziness, lightheadedness. He's currently tolerating diet. Patient has a Heaton catheter draining clear urine. Urologist has been consulted. CT abdomen has been ordered. Objective vital signs Vital Sign Date Time Temp Pulse Resp B/P (MAP) Pulse Ox O2 Delivery O2 Flow Rate FiO2 12/15/24 13:00 97.8 65 17 120/67 (84) 93 97.8 12/15/24 08:00 Room Air* 0 21 Total Intake and Output 12/14/24 12/14/24 12/15/24 15:00 23:00 07:00 Intake Total 880 ml 210 ml Output Total 1700 ml 600 ml Balance -820 ml -390 ml medications Current Medications Medications Dose Ordered Sig/Yvrose Route Start Time Stop Time Status Last Admin Dose Admin Sodium Chloride 10 ml Q8HR IV 12/14/24 22:00 12/15/24 13:36 10 ML Acetaminophen/ Hydrocodone Bitart 1 tab Q4HP PRN PO 12/14/24 15:15 12/15/24 08:49 1 TAB Ondansetron HCl 4 mg Q4HP PRN IV 12/14/24 15:15 12/14/24 15:45 4 MG Docusate Sodium 100 mg BIDPRN PRN PO 12/14/24 15:15 Acetaminophen 650 mg Q6HP PRN PO 12/14/24 15:15 Tamsulosin HCl 0.4 mg QPM PO 12/14/24 18:00 12/14/24 17:48 0.4 MG Finasteride 5 mg DAILY PO 12/15/24 10:00 Hold Patient Own Medication 1 tab DAILY PO 12/15/24 10:00 Examination Physical examination as below: General: Awake, alert, comfortable appearing, in no acute distress. HEENT: Head is normocephalic and atraumatic. Pupils are equal, round, and reactive to light. Extraocular muscles are intact. No nasal discharge. No facial trauma. Intraoral exam shows moist mucous membranes with no tonsillar enlargement or exudate. Neck: Supple with no cervical lymphadenopathy. Heart: Regular rate without murmur, rub, or gallop. Lungs: Equal breath sounds bilaterally with no wheezing, rales, or rhonchi. There is no chest wall tenderness or instability. Abdomen: No external sign of injury. Bowel sounds are present. Abdomen is soft, nontender. No rebound, no guarding, no rigidity. There are no palpable masses. There is no flank pain on exam. Extremities: Strong peripheral pulses. There is no clubbing, no cyanosis, and no edema. Heaton catheter draining clear urine. Skin: No rash. Neurologic: Cranial nerves II-XII intact without motor, sensory, or cerebellar deficit, no asterixis. laboratory and microbiology Laboratory Tests 12/15/24 05:51 Test 12/15/24 05:51 Range/Units Serum Glucose 87 74-106 mg/dL Labs and/or images reviewed: Labs reviewed by me, Image(s) reviewed by me Problem List/Assessment/Plan Problem List/Assessment/Plan Acute urinary retention, likely due to BPH, Nonobstructive kidney stone UTI, cystitis Hypertension, Hyperlipidemia, Arthritis, Diverticulosis, no diverticulitis Plan: Keep Heaton catheter, he will be discharged with a catheter as well Follow with Urology in the outpatient setting for cystoscopy IV fluids given Pain medications needed Rocephin IV q.d. Flomax p.o. Ordered urine culture Goals of care were discussed for over 30 minutes. FULL CODE. Case was discussed with Dr. Murillo Plan discussed with: Patient, Other (RN) My Orders My Orders Orders - SHIREEN VILLAGRAN RESIDENT Procedure Category Date Status Time Ct Ab Pel Wo Con-No CT 12/15/24 Resulted Oral Or Iv 08:18 Date of Service: Dec 15, 2024 Billing Provider: SETH MURILLO MD Common Visit Codes: [id number] INP/OBS CARE(HIGH) Secondary Visit Codes: [id number] CARE PLAN 30 MINUTES SHIREEN VILLAGRAN RESIDENT Dec 15, 2024 15:13 SETH MURILLO MD Dec 15, 2024 18:29
[2024-12-15] MEDS: cefTRIAXone 1GM/50ML D5W 50 ML IV ONE (16:06)
[2024-12-16 01:00] VITALS: BP 123/79; PULSE 63; RESP 18; TEMP 97.9; O2SAT 96
[2024-12-16 05:00] VITALS: BP 134/75; PULSE 60; RESP 18; TEMP 98.7; O2SAT 95
[2024-12-16 06:57] LABS: Alanine Aminotransferase 28 U/L (7-40); Albumin 4.1 g/dL (3.2-4.8); Alkaline Phosphatase 61 U/L (46-116); Anion Gap 5 (5-15); Aspartate Aminotransferase 15 U/L (13-40); BUN/Creatinine Ratio 21.6 (10.0-20.0); Blood Urea Nitrogen 21 mg/dL (9-23); Calcium 9.4 mg/dL (8.7-10.4); Carbon Dioxide 27 mmol/L (20-31); Chloride 104 mmol/L (98-107); Potassium 4.4 mmol/L (3.5-5.1); Sodium 136 mmol/L (136-145); Total Protein 6.7 g/dL (5.7-8.2)
[2024-12-16 06:58] LABS: Bilirubin, Total 0.9 mg/dL (0.2-1.0)
[2024-12-16 07:05] LABS: Glucose 108 mg/dL (74-106)
--- NOTE | 2024-12-16 07:07 | DVHINCON2 ---
Date of service: Dec 16, 2024 Referring Physician Hospitalist Reason for Consultation urinary retention History of Present Illness History Source: Patient, RN Notes, MD Notes Exam Limitations: No limitations HPI 69 yo male with c/o urinary retention. This has happened before 2 other times both times including this episode associated with alcohol intake. A chisholm was pl aced without difficulty. Home Meds Reported Medications Valsartan-Hydrochlorothiazide (VALSARTAN/HYDROCHLOROTHIA) 1 Tab Tab, 1 TAB PO DAILY 12/14/24 Cholecalciferol (VITAMIN D3) 2,000 Unit Tab, 1 TAB PO DAILY, #30 TAB 5 Refills 01/20/24 Finasteride (Finasteride) 5 Mg Tab, 1 TAB PO DAILY, #30 TAB 11 Refills 01/20/24 Discontinued Reported Medications Hctz (Hydrochlorothiazide) 25 Mg Tab, 1 TAB PO DAILY 01/20/24 Discontinued Scripts Pantoprazole Sodium Sesquihydr (Protonix) 40 Mg Tab, 40 MG PO DAILY for 15 Days, #15 TAB Prov:ROSHNI VELASCO MD 01/22/24 Past Medical History Patient Family History: Influenza pneumonia G8 MOTHER, Onset:60 years & older Review of Systems Genitourinary: Retention H&P Exam Vital Signs Vital Signs Date Time Temp Pulse Resp B/P (MAP) Pulse Ox O2 Delivery O2 Flow Rate FiO2 12/16/24 05:00 98.7 60 18 134/75 (94) 95 98.7 12/15/24 20:00 Room Air* 0 21 General Appeara: Well developed, Well nourished, Normal Appearance Neuro/Mental St: Alert, Oriented Appearance: Appropriate appearance, Appropriate insight Eye contact/ Speech: Cooperative, Good eye contact, Normal speech Coordination/Gait: Normal finger->nose, Normal gait, Negative Romberg's sign Skin Exam: Normal inspection, Normal color, Warm/dry Labs/Xrays [place] [address] Ph: [phone] DIAGNOSTIC IMAGING Diagnostic Imaging Report : [id number] Signed PATIENT: LLUVIA BAY ACCT: [id number] UNIT: [id number] : 1955 LOC: CENTRAL ROOM / BED: [facility] / B AGE / SEX: 69 / M ADM STATUS: ADM IN SERVICE 0818 ORDERING PHYSICIAN: SHIREEN VILLAGRAN RESIDENT PROCEDURE(s): ABPL - CT AB PEL WO CON-NO ORAL OR IV REASON: suprapubic pain ORDER NUMBER(s): [id number], ACCESSION NUMBER(s): [id number] Procedure: CT CT AB PEL WO CON-NO ORAL OR IV 12/15/2024 09:03 AM Indication: suprapubic pain Comparison Study: CT CT AB PEL WO CON-NO ORAL OR IV on DOS: 01/20/24 Technique: Axial images were obtained and reformatted in coronal and sagittal planes. All CT scans at this medical facility are performed using dose modulation techniques as appropriate to a performed exam including the following: Automated exposure control was utilized; adjustment of the MA and/or KV according to patient size; and use of iterative reconstruction technique. CT Dose: CTDI volume is 9.98 mGy. Dose-length product is 658.78 mGy*cm FINDINGS: Lower Chest: Bibasilar subsegmental atelectasis is noted. The heart is normal in size. Coronary artery calcification noted. Hepatobiliary: Unremarkable. Spleen: Unremarkable. Pancreas: Unremarkable. Adrenal Glands: Unremarkable. tract: The kidneys are normal in size bilaterally without hydronephrosis . Few subcentimeter nonobstructing left renal calculi measuring up to 3 mm. Bladder is decompressed with a Chisholm catheter . Diffuse bladder wall thickening pericystic fat stranding noted. Trace fluid is seen in the bladder lumen likely related to recent instrumentation. GI tract: The stomach is grossly normal in appearance. No evidence of small bowel obstruction. There is sigmoid diverticulosis without diverticulitis. The appendix is not visualized. No inflammatory change is noted in the right lower quadrant. Lymphatics: No mesenteric, retroperitoneal or periportal lymphadenopathy. Vasculature: The abdominal aorta is normal in in caliber with Scattered calcified plaques noted. Pelvic Organs: Mild prostatic hyperplasia measuring 4.8 cm in transverse Bones/soft tissues: No acute abnormality. Other: None. IMPRESSION: 1. Cystitis. Bladder wall is thickened pericystic inflammation noted. No hydroureter or hydronephrosis. 2. Several subcentimeter nonobstructing left renal calculi measuring up to 3 mm. 3. Moderate prostatic hyperplasia. 4. Sigmoid diverticula without diverticulitis. ATED BY: DEANN RANGEL MD DICTATED DATE/TIME: 12/15/2457 SIGNED BY: DEANN RANGEL MD SIGNED DATE/TIME: 12/15/2457 CC: Labs Test 12/16/24 05:42 12/15/24 05:51 12/14/24 09:45 12/14/24 09:34 Range/Units White Blood Count 5.7 4.4-10.8 10^3/uL Red Blood Count 4.37 L 4.5-5.90 10^6/uL Hemoglobin 13.6 13.5-17.5 g/dL Hematocrit 39.4 #L 41.0-53.0 % Mean Corpuscular Volume 90.1 80.0-100.0 fL Mean Corpuscular Hemoglobin 31.0 28.0-32.0 pg Mean Corpuscular Hemoglobin Concent 34.4 32.0-36.0 g/dL Red Cell Distribution Width 14.3 11.8-14.3 % Platelet Count 153 140-450 10^3/uL Mean Platelet Volume 9.1 6.9-10.8 fL Neutrophils (%) (Auto) 65.5 37.0-80.0 % Lymphocytes (%) (Auto) 23.4 10.0-50.0 % Monocytes (%) (Auto) 8.6 0.0-12.0 % Eosinophils (%) (Auto) 2.3 0.0-7.0 % Basophils (%) (Auto) 0.2 0.0-2.0 % Neutrophils # (Auto) 3.8 1.6-8.6 10 ^3/uL Lymphocytes # (Auto) 1.3 0.4-5.4 10 ^3/uL Monocytes # (Auto) 0.5 0-1.3 10 ^3/uL Eosinophils # (Auto) 0.1 0-0.8 10 ^3/uL Basophils # (Auto) 0 0-0.2 10 ^3/uL Nucleated Red Blood Cells 0.2 % Urine Color Colorless Yellow Urine Clarity Clear Clear Urine pH 5.0 5.0-9.0 Urine Specific [place] 1.007 1.001-1.035 Urine Protein Negative Negative Urine Ketones Negative Negative Urine Blood Negative Negative /uL Urine Nitrite Negative Negative Urine Bilirubin Negative Negative Urine Urobilinogen Normal Negative mg/dL Urine Leukocyte Esterase Negative Negative /uL Urine RBC 1 0 - 3 /hpf Urine Microscopic WBC < 1 0-3 /HPF Urine Squamous Epithelial Cells None seen <5 /hpf Urine Bacteria None seen None Seen /hpf Urine Glucose Normal Normal mg/dL Troponin I High Sensitivity 6 </=54 ng/L Assessment/Plan Problem List: (1) BPH with lower urinary tract symptoms without urinary obstruction (2) Urinary retention Plan ok to d/c with chisholm catheter to leg bag f/u 1 week for voiding trial in office will need cystoscopy start dual therapy signing off Plan discussed with: Patient, 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
[2024-12-16] MEDS ORDERED: TAMS-35 PO (07:29)
[2024-12-16] MEDS ORDERED: FIN5T PO (07:29)
--- NOTE | 2024-12-16 07:32 | DVHDSRES ---
Discharge Summary Date of Admission Resident Creating Document: SHIREEN VILLAGRAN RESIDENT Dec 14, 2024 at 15:15 Date of Discharge: Dec 16, 2024 Admitting Diagnosis Urinary retention Labs/Diagnostic Data: Laboratory Results Test 12/16/24 05:42 12/15/24 05:51 12/14/24 09:45 12/14/24 09:34 Sodium Level 136 mmol/L (136-145) Potassium Level 4.4 mmol/L (3.5-5.1) Chloride Level 104 mmol/L (98-107) Carbon Dioxide Level 27 mmol/L (20-31) Anion Gap 5 (5-15) Blood Urea Nitrogen 21 mg/dL (9-23) Creatinine 0.97 mg/dL (0.700-1.30) Glomerular Filtration Rate Calc 84 mL/min (>90) BUN/Creatinine Ratio 21.6 (10.0-20.0) Serum Glucose 108 mg/dL (74-106) Calcium Level 9.4 mg/dL (8.7-10.4) Total Bilirubin 0.9 mg/dL (0.2-1.0) Aspartate Amino Transferase (AST) 15 U/L (13-40) Alanine Aminotransferase (ALT) 28 U/L (7-40) Alkaline Phosphatase 61 U/L (46-116) Total Protein 6.7 g/dL (5.7-8.2) Albumin 4.1 g/dL (3.2-4.8) White Blood Count 5.7 10^3/uL (4.4-10.8) Red Blood Count 4.37 10^6/uL (4.5-5.90) Hemoglobin 13.6 g/dL (13.5-17.5) Hematocrit 39.4 % (41.0-53.0) Mean Corpuscular Volume 90.1 fL (80.0-100.0) Mean Corpuscular Hemoglobin 31.0 pg (28.0-32.0) Mean Corpuscular Hemoglobin Concent 34.4 g/dL (32.0-36.0) Red Cell Distribution Width 14.3 % (11.8-14.3) Platelet Count 153 10^3/uL (140-450) Mean Platelet Volume 9.1 fL (6.9-10.8) Neutrophils (%) (Auto) 65.5 % (37.0-80.0) Lymphocytes (%) (Auto) 23.4 % (10.0-50.0) Monocytes (%) (Auto) 8.6 % (0.0-12.0) Eosinophils (%) (Auto) 2.3 % (0.0-7.0) Basophils (%) (Auto) 0.2 % (0.0-2.0) Neutrophils # (Auto) 3.8 10 ^3/uL (1.6-8.6) Lymphocytes # (Auto) 1.3 10 ^3/uL (0.4-5.4) Monocytes # (Auto) 0.5 10 ^3/uL (0-1.3) Eosinophils # (Auto) 0.1 10 ^3/uL (0-0.8) Basophils # (Auto) 0 10 ^3/uL (0-0.2) Nucleated Red Blood Cells 0.2 % Urine Color Colorless (Yellow) Urine Clarity Clear (Clear) Urine pH 5.0 (5.0-9.0) Urine Specific [place] 1.007 (1.001-1.035) Urine Protein Negative (Negative) Urine Ketones Negative (Negative) Urine Blood Negative /uL (Negative) Urine Nitrite Negative (Negative) Urine Bilirubin Negative (Negative) Urine Urobilinogen Normal mg/dL (Negative) Urine Leukocyte Esterase Negative /uL (Negative) Urine RBC 1 /hpf (0 - 3) Urine Microscopic WBC < 1 /HPF (0-3) Urine Squamous Epithelial Cells None seen /hpf (<5) Urine Bacteria None seen /hpf (None Seen) Urine Glucose Normal mg/dL (Normal) Troponin I High Sensitivity 6 ng/L (</=54) Other Laboratory Tests 12/16/24 05:42 12/15/24 05:51 Brief Hx & Hospital Course: This is a 69-year-old male who came in for urinary retention. PMH: HTN, hyperipidemia, Osteoarthritis, Benign prostatic enlarg. Past Surgical History: Other (right ear) SH: Smoke: No. ALCOHOL: rare. Drugs: None. Lives: with Family Patient states that he has had this problem in the past 2 other times, where he had to go to the hospital to have a catheter placed. He states it happens when he drinks alcohol. Patient states he drinks rarely, but he had a few beer last night and he last urinated at 2000 yesterday prior to coming in. On assessment there is about 1500 ml of clear, yellow urine in the catheter bag since it was inserted around 1030 am. On my initial assessment, patient was seen and examined at bedside. He currently states feeling well, denies any significant shortness of breath, chest pain, abdominal pain, dysuria, nausea, vomiting, diarrhea, constipation, dizziness, lightheadedness. He's currently tolerating diet. Patient has a Heaton catheter draining clear urine. Urologist has been consulted. CT abdomen has been ordered, which revealed BPH, left renal calculi, cystitis. Urology recommended patient to go home on Heaton catheter, he will be seen by them in one week, a cystoscopy we will be scheduled. Patient has had significant improvement from admission, he denied any significant pain, shortness of breath. He is ambulatory, tolerating diet. Physical examination as below: General: Awake, alert, comfortable appearing, in no acute distress. HEENT: Head is normocephalic and atraumatic. Pupils are equal, round, and reactive to light. Extraocular muscles are intact. No nasal discharge. No facial trauma. Intraoral exam shows moist mucous membranes with no tonsillar enlargement or exudate. Neck: Supple with no cervical lymphadenopathy. Heart: Regular rate without murmur, rub, or gallop. Lungs: Equal breath sounds bilaterally with no wheezing, rales, or rhonchi. There is no chest wall tenderness or instability. Abdomen: No external sign of injury. Bowel sounds are present. Abdomen is soft, nontender. No rebound, no guarding, no rigidity. There are no palpable masses. There is no flank pain on exam. Extremities: Strong peripheral pulses. There is no clubbing, no cyanosis, and no edema. Heaton catheter draining clear urine. Skin: No rash. Neurologic: Cranial nerves II-XII intact without motor, sensory, or cerebellar deficit, no asterixis. Patient will be discharge home, he will continue home medications as prescribed. He will continue taking finasteride, Flomax, Keflex for five days. He will follow-up with PCP in 1-2 weeks, he will also follow with urologist within one week, he will continue with a Heaton catheter in place until he sees the urologist. Patient verbalized understanding and agree with the DC plan, we spent over 30 minutes explaining the plan. Case was discussed with Dr. Murillo Consults/Reason for consult Urology was consulted due to urinary retention Operations or Procedures [place] [address] Ph: [phone] DIAGNOSTIC IMAGING Diagnostic Imaging Report : [id number] Signed PATIENT: LLUVIA BAY ACCT: [id number] UNIT: [id number] : 1955 LOC: CENTRAL ROOM / BED: [facility] / B AGE / SEX: 69 / M ADM STATUS: ADM IN SERVICE 7 ORDERING PHYSICIAN: SHIREEN VILLAGRAN RESIDENT PROCEDURE(s): ABPL - CT AB PEL WO CON-NO ORAL OR IV REASON: suprapubic pain ORDER NUMBER(s): [id number], ACCESSION NUMBER(s): [id number] Procedure: CT CT AB PEL WO CON-NO ORAL OR IV 12/15/2024 09:03 AM Indication: suprapubic pain Comparison Study: CT CT AB PEL WO CON-NO ORAL OR IV on DOS: 01/20/24 Technique: Axial images were obtained and reformatted in coronal and sagittal planes. All CT scans at this medical facility are performed using dose modulation techniques as appropriate to a performed exam including the following: Automated exposure control was utilized; adjustment of the MA and/or KV according to patient size; and use of iterative reconstruction technique. CT Dose: CTDI volume is 9.98 mGy. Dose-length product is 658.78 mGy*cm FINDINGS: Lower Chest: Bibasilar subsegmental atelectasis is noted. The heart is normal in size. Coronary artery calcification noted. Hepatobiliary: Unremarkable. Spleen: Unremarkable. Pancreas: Unremarkable. Adrenal Glands: Unremarkable. tract: The kidneys are normal in size bilaterally without hydronephrosis . Few subcentimeter nonobstructing left renal calculi measuring up to 3 mm. Bladder is decompressed with a Heaton catheter . Diffuse bladder wall thickening pericystic fat stranding noted. Trace fluid is seen in the bladder lumen likely related to recent instrumentation. GI tract: The stomach is grossly normal in appearance. No evidence of small bowel obstruction. There is sigmoid diverticulosis without diverticulitis. The appendix is not visualized. No inflammatory change is noted in the right lower quadrant. Lymphatics: No mesenteric, retroperitoneal or periportal lymphadenopathy. Vasculature: The abdominal aorta is normal in in caliber with Scattered calcified plaques noted. Pelvic Organs: Mild prostatic hyperplasia measuring 4.8 cm in transverse Bones/soft tissues: No acute abnormality. Other: None. IMPRESSION: 1. Cystitis. Bladder wall is thickened pericystic inflammation noted. No hydroureter or hydronephrosis. 2. Several subcentimeter nonobstructing left renal calculi measuring up to 3 mm. 3. Moderate prostatic hyperplasia. 4. Sigmoid diverticula without diverticulitis. ATED BY: DEANN RANGEL MD DICTATED DATE/TIME: 12/15/24956 SIGNED BY: DEANN RANGEL MD SIGNED DATE/TIME: 12/15/24956 CC: Condition at Discharge: Stable Final Diagnosis/Problems List Acute urinary retention, likely due to BPH, Nonobstructive kidney stone UTI, cystitis Hypertension, Hyperlipidemia, Arthritis, Diverticulosis, no diverticulitis Discharge Disposition: Home Discharge Statement: "Patient was advised to return to the ER or call 911 if any headaches, dizziness, shortness of breath, chest pain, abdominal pain, bleeding, fevers, or worsening of medical condition. Patient was counseled about treatment plan, medications, possible side effects, patientverbalized understanding. All questions were answered to the best of my ability. This discharge took greater then 30 minutes in planning, reviewing documentation, counseling the patient, and discussing with other team members." ASSESSMENT ASSESSMENT Assessment Date of Service: Dec 16, 2024 Billing Provider: SETH MURILLO MD Common Visit Codes: 41849-LPN/OBS DISCH DAY >30min SHIREEN VILLAGRAN RESIDENT Dec 16, 2024 07:32 SETH MURILLO MD Dec 16, 2024 17:14
[2024-12-16 07:38] VITALS: BP 131/85; PULSE 56; RESP 18; TEMP 97.7; O2SAT 97
[2024-12-16 08:00] VITALS: PULSE 56; RESP 18; O2SAT 98
[2024-12-16 08:08] LABS: PSA Free 0.63 ng/mL
[2024-12-16] MEDS ORDERED: CEPH250C PO (09:24)
[2024-12-16] MEDS: cefTRIAXone 1GM/50ML D5W 50 ML IV SCH (09:37)
[2024-12-16] MEDS: FINASTERIDE 5 MG TAB PO SCH (09:37)
[2024-12-16 10:58] VITALS: BP 131/85; PULSE 56; RESP 18; TEMP 36.5; O2SAT 97
[2024-12-16 13:11] VITALS: BP 154/80; PULSE 64; RESP 18; TEMP 98.4; O2SAT 95
== END 2024-12-16 13:16 | disposition home or self-care (01) | DRG 726 ==
LOC: ER 09:08 → OVERFLOW 15:15 → CENTRAL 17:25
PROVIDERS: ADMIT Internal Medicine; ATTEND Internal Medicine
DX: N40.0 Benign prostatic hyperplasia without lower urinary tract symptoms (principal); I10 Essential (primary) hypertension; E78.5 Hyperlipidemia, unspecified; M19.90 Unspecified osteoarthritis, unspecified site; N30.90 Cystitis, unspecified without hematuria; K57.30 Diverticulosis of large intestine without perforation or abscess without bleeding; N20.0 Calculus of kidney; Z79.899 Other long term (current) drug therapy
CPT/HCPCS: 36415; 74176; 80048; 80053; 81001; 84154; 84484; 85025; 87086; 96374; G0378; J2405

== ENCOUNTER 2025-06-04 07:10 | Emergency (ER) | payer OTHER, MEDICAID ==
[~2025-06-04] VITALS: Ht 190.5 cm; Wt 80.9 kg
[~2025-06-04 07:10] MED LIST changes: +CEPH250C PO; +FIN5T PO; -FINA5TAB4 PO; -HYDR25TA5 PO; -PANT40TA2 PO; +TAMS-35 PO; +VALS160T84 PO
[2025-06-04 07:29] VITALS: BP 124/77; PULSE 80; RESP 16; TEMP 97.5; O2SAT 97
--- NOTE | 2025-06-04 07:29 | ED.PDOC ---
History of Present Illness(SKN HPI Comments A 69 YEAR OLD MALE PRESENTS TO THE ED WITH COMPLAINT OF PAINFUL RASH. PATIENT STATES HE HAS BEEN EXPERIENCING PAINFUL RASH ON HIS RIGHT LOWER ABDOMEN THAT EXTENDS TO HIS RIGHT FLANK REGION FOR THE PAST 1 WEEK. PATIENT DENIES FEVER, CHILLS, SHORTNESS OF BREATH, CHEST PAIN, ABDOMINAL PAIN, NAUSEA, VOMITING, HEADACHE, OR OTHER COMPLAINTS. NO OTHER SYMPTOMS OR MODIFYING FACTORS AT THIS TIME. PATIENT IS ALERT, ORIENTED X 4, AND HAS STEADY GAIT. Chief Complaint: Rash Time Seen by MD: 07:15 Primary Care Provider: unknown History of Present Illness: Nurses Notes, Medications, Allergies Allergies: Coded Allergies: NO KNOWN ALLERGIES (Unverified , 06/10/20) Home Meds Active Scripts Tramadol HCl (Tramadol HCl) 50 Mg Tab, 50 MG PO BID, #20 TAB Prov:ELKE YOUNG 06/04/25 Acyclovir (Acyclovir) 800 Mg Tab, 800 MG PO 5XD, #35 TAB Prov:ELKE YOUNG 06/04/25 Cephalexin (KEFLEX CAPSULE) 250 Mg Cp, 2 CAP PO BID for 7 Days, #28 CAP Prov:SHIREEN VILLAGRAN RESIDENT 12/16/24 Tamsulosin Hcl (Flomax) 0.4 Mg Cap, 0.4 MG PO QPM for 30 Days, #2 CAP 2 Refills Prov:SHIREEN VILLAGRAN [facility] 12/16/24 Finasteride (Finasteride) 5 Mg Tab, 5 MG PO DAILY for 30 Days, #30 TAB 2 Refills Prov:SHIREEN VILLAGRAN [facility] [place] 12/16/24 Reported Medications Valsartan-Hydrochlorothiazide (VALSARTAN/HYDROCHLOROTHIA) 1 Tab Tab, 1 TAB PO DAILY 12/14/24 Cholecalciferol (VITAMIN D3) 2,000 Unit Tab, 1 TAB PO DAILY, #30 TAB 5 Refills 01/20/24 Information Source: Patient Mode of Arrival: Ambulatory Severity: Moderate Timing: Days Duration: Since onset, Days Prehospital treatment: None Location: Abdomen (RIGHT LOWER ABDOMEN), Back, Other (RIGHT FLANK) Mechanism: Spontaneous Onset Developed: Rash Occurence: Indoors Object: None Condition of Object: None Retained Foreign Body: Unknown Wound Type: Other Immunization Status of Animal: NA Tetanus: Unknown History of: None Associated Signs and Symptoms: Redness, Pain Past Medical History PAST MEDICAL HISTORY: HTN Past Medical History (Other): BPH Surgical History: Denies all surgeries Family History Family History: Reviewed,noncontributory to illness Social History Smoker: Non-Smoker Alcohol: Occasionally Drugs: Denies Drug Use Lives In: Home Constitutional: denies: chills, diaphoresis, fatigue, fever, malaise, sweats, weakness, others EENTM: denies: blurred vision, double vision, ear bleeding, ear discharge, ear drainage, ear pain, ear ringing, eye pain, eye redness, hearing loss, mouth pain, mouth swelling, nasal discharge, nose bleeding, nose congestion, nose pain, photophobia, tearing, throat pain, throat swelling, voice changes, others Respiratory: denies: cough, hemoptysis, orthopnea, SOB at rest, shortness of breath, SOB with excertion, stridor, wheezing, others Cardiovascular: denies: chest pain, dizzy spells, diaphoresis, Dyspnea on exertion, edema, irregular heart beat, left arm pain, lightheadedness, palpitations, PND, syncope, others Gastrointestinal: denies: abdomen distended, abdominal pain, blood streaked bowels, constipated, diarrhea, dysphagia, difficulty swallowing, hematemesis, melena, nausea, poor appetite, poor fluid intake, rectal bleeding, rectal pain, vomiting, others Genitourinary: denies: burning, dysuria, flank pain, frequency, hematuria, incontinence, penile discharge, penile sore, pain, testicle pain, testicle swelling, urgency, others Neurological: denies: dizziness, fainting, headache, left sided numbness, left sided weakness, numbness, paresthesia, pre-existing deficit, right sided numbness, right sided weakness, seizure, speech problems, tingling, tremors, weakness, others Musculoskeletal: denies: back pain, gout, joint pain, joint swelling, muscle pain, muscle stiffness, neck pain, others Integumetry: reports: lesions, rash (PAINFUL RASH OF RIGHT LOWER ABDOMEN THAT EXTENDS TO RIGHT FLANK), wounds; denies: bruises, change in color, change in hair/nails, dryness, laceration, lumps, others Allergic/Immunocompromised: denies: Difficulty Healing, Frequent Infections, Hives, Itching, others Hematologic/Lymphatic: denies: anemia, blood clots, easy bleeding, easy bruising, swollen glands, others Endocrine: denies: excessive hunger, excessive sweating, excessive thirst, excessive urination, flushing, intolerance to cold, intolerance to heat, unexplained weight gain, unexplained weight loss, others Psychiatric: denies: anxiety, bipolar disorder, depression, hopeless, panic disorder, schizophrenia, sleepless, suicidal, others All Other Systems: Reviewed and Negative Physical Exam General Appearance: No Apparent Distress, Normal HEENT: Normal ENT Inspection, PERRL/EOMI, Pharynx Normal, TMs Normal Neck: Full Range of Motion, Non-Tender, Normal, Normal Inspection Respiratory: Chest Non-Tender, Lungs Clear, No Accessory Muscle Use, No Respiratory Distress, Normal Breath Sounds Cardiovascular: No Edema, No JVD, No Murmur, No Gallop, Normal Peripheral Pulses, Regular Rate/Rhythm Breast Exam: Deferred Gastrointestinal: No Organomegaly, Non Tender, No Pulsatile Mass, Normal Bowel Sounds, Soft Genitalia: Deferred Pelvic: Deferred Rectal: Deferred Extremities: No calf tenderness, Normal capillary refill, Normal inspection, Normal range of motion, Non-tender, No pedal edema Musculoskeletal : Apperance: Normal Neurologic: Alert, customer success director II-XII nml as Tested, No Motor Deficits, Normal Affect, Normal Mood, No Sensory Deficits Cerebellar Function: Normal Reflexes: Normal Skin: Dry, Rash (A GROUP OF ERYTHEMA AND VESICLE SKIN RASH ON RIGHT SIDE MIDDLE ABD WALL TO RIGHT MIDDLE BACK, NO OP[EN WOUND SEEN. ), Warm Peripheral Pulses: 2+ carotid (R), 2+ carotid (L) Lymphatic: No Adenopathy Was a procedure done? Was a procedure done?: No Differential Diagnosis (INTG) Differential Diagnosis: N/A Differential Diagnosis: Atopic dermatitis, Contact Dermatitis, Herpes Zoster/Simplex, Tinea, Urticaria Differential Diagnosis: N/A Abscess: N/A Differential Diagnosis: N/A X-Ray, Labs, Meds, VS Vital Signs Date Time Temp Pulse Resp B/P (MAP) Pulse Ox O2 Delivery O2 Flow Rate FiO2 06/04/25 07:29 97.5 80 16 124/77 (93) 97 97.5 06/04/25 07:12 96.5 69 20 153/80 98 96.5 X-Ray, Labs, Meds, VS Comment EXTERNAL MEDICAL RECORDS REVIEWED: [NONE] INDEPENDENT HISTORIANS: [NONE] SOCIAL DETERMINANTS OF HEALTH: [NONE] LABS ORDERED: NONE REVIEWED AND INTERPRETED RESULTS: NONE IMAGING ORDERED: NONE TREATMENTS ORDERED: NONE PROCEDURES PERFORMED: NONE CRITICAL CARE TIME: NONE I HAVE DISCUSSED THE PATIENT WITH THE ATTENDING PHYSICIAN DR. BOYD AND SHE AGREES WITH THE PATIENT'S PLAN OF CARE AND DISPOSITION. BASED ON HISTORY OF PRESENT ILLNESS, AND PHYSICAL EXAM, PATIENT WILL BE DISCHARGED HOME. DISCUSSED PLAN FOR DISCHARGE HOME WITH RX [ACYCLOVIR AND ULTRAM ]. MEDICATION WARNINGS GIVEN. SHARED DECISION MAKING: PATIENT INSTRUCTED TO FOLLOW UP WITH PRIMARY CARE PROVIDER IN 1-2 DAYS FOR RE-EVALUATION OF SYMPTOMS. PATIENT VERBALIZES UNDERSTANDING TO RETURN TO ED FOR NEW OR WORSENING SYMPTOMS OR IF FOLLOW UP WITH PCP CANNOT BE OBTAINED. PATIENT FEELS COMFORTABLE GOING HOME AT THIS TIME. ALL QUESTIONS ADDRESSED AT TIME OF DISCHARGE. Time of 1ST Reevaluation: 07:50 Reevaluation 1ST: Improved Patient Education/Counseling: Diagnosis, Treatment, Need For Follow Up Family Education/Counseling: Diagnosis, Treatment, Need For Follow Up Medical Screening: No EMC Exist At This Time SEPSIS Sepsis Screen Date sepsis recognized/suspect: Jun 04, 2025 Time Sepsis recognized/suspect: 714 Recent Procedure: No On Antibiotic Therapy: No Respiratory Rate >20: No Heart Rate >90: No Temp<36 C (96.8 F) or >38.3 C: No SBP <90 or MAP <65 mmHG: No New Acute Mental Status Change: No Is the patient on CPAP, BIPAP,: No Vital Signs Date Time Temp Pulse Resp B/P (MAP) Pulse Ox O2 Delivery O2 Flow Rate FiO2 06/04/25 07:29 97.5 80 16 124/77 (93) 97 97.5 06/04/25 07:12 96.5 69 20 153/80 98 96.5 Departure 1 Departure Time of Disposition: 07:50 Impression: Primary Impression: Herpes zoster Qualified Codes: B02.9 - Zoster without complications Disposition: 01 HOME / SELF CARE / HOMELESS Condition: Stable Additional Instructions: FOLLOW-UP WITH PCP IN 1 TO 2 DAYS. TAKE MEDICATIONS PRESCRIBED. RETURN TO ED FOR ANY NEW OR WORSENING SYMPTOMS. e-Prescriptions Tramadol HCl (Tramadol HCl) 50 Mg Tab 50 MG PO BID, #20 TAB Prov: ELKE YOUNG 06/04/25 Acyclovir (Acyclovir) 800 Mg Tab 800 MG PO 5XD, #35 TAB Prov: ELKE YOUNG 06/04/25 Discharged With: Self Critical Care Note Critical Care Time?: No Stability Stability form required: No I personally scribed for ELKE YOUNG ([email or web address]) on 06/04/25 at 07:29. Electronically submitted by Ravi Miner ([email or web address]). ELKE YOUNG Jun 04, 2025 07:29
[2025-06-04] MEDS ORDERED: ACYC1TAB3 PO (07:31)
[2025-06-04] MEDS ORDERED: TRAM-626 PO (07:31)
== END 2025-06-04 07:41 | disposition home or self-care (01) ==
LOC: ER 07:10
DX: B02.9 Zoster without complications (principal); I10 Essential (primary) hypertension; N40.0 Benign prostatic hyperplasia without lower urinary tract symptoms; Z79.899 Other long term (current) drug therapy